=== PATIENT | male | born 1960 | race Caucasian/White ===

== ENCOUNTER 2022-08-23 17:53 | Emergency (ER) | payer MEDICAID ==
[~2022-08-23] VITALS: Ht 177.8 cm; Wt 99.8 kg
--- NOTE | 2022-08-23 18:48 | NUR ---
ESTABLISHED IV ACCESS 18G RIGHT AC. BLOOD DRAWN AND SENT TO LAB
--- NOTE | 2022-08-23 19:13 | NUR ---
Pt alert and oriented. In bed with head of bed elevated. at bedside. Pt able to answer questions. No signs of distress noted.
[2022-08-23 19:18] LABS: ALANINE AMINOTRANSFERASE 23 U/L (12-78); ALBUMIN 4.1 g/dL (3.4-5.0); ALKALINE PHOSPHATASE 56 U/L (46-116); ASPARTATE AMINOTRANSFERASE 20 U/L (15-37); BILIRUBIN,DIRECT 0.3 mg/dL (0.0-0.2); BILIRUBIN,TOTAL 0.9 mg/dL (0.2-1.0); CALCIUM, SERUM 10.1 mg/dL (8.5-10.1); CARBON DIOXIDE 27 mmol/L (21-32); CHLORIDE 95 mmol/L (98-107); CREATININE 2.2 mg/dL (0.6-1.3); GLUCOSE 169 mg/dL (74-106); POTASSIUM 2.9 mmol/L (3.5-5.1); SODIUM SERUM 134 mmol/L (136-145); TOTAL PROTEIN, SERUM 8.1 g/dL (6.4-8.2); UREA NITROGEN, BLOOD 22 mg/dL (7-18)
--- NOTE | 2022-08-23 19:25 | NUR ---
PT RETURNED TO ER BED [address]
--- NOTE | 2022-08-23 19:29 | NUR ---
COVID ANTIGEN SWAB COLLECTED AND SENT TO LAB
--- NOTE | 2022-08-23 20:32 | NUR ---
[facility] ([place]) [phone]
[2022-08-23 20:38] LABS: BASOPHILS % (AUTO) 0.1 % (0.0-2.0); HEMATOCRIT 49 % (39-51); HEMOGLOBIN 16.7 g/dL (13.5-17.5); LYMPHOCYTES # (AUTO) 0.9 K/uL (0.8-4.8); LYMPHOCYTES % (AUTO) 6.4 % (20.0-44.0); MEAN CORPUSCULAR HGB CONC 34 g/dl (31.0-36.0); MEAN CORPUSCULAR VOLUME 92 fL (80-96); MONOCYTES # (AUTO) 0.8 K/uL (0.1-1.30); MONOCYTES % (AUTO) 5.9 % (2.0-12.0); NEUTROPHILS # (AUTO) 12.6 K/uL (1.8-8.9); NEUTROPHILS % (AUTO) 87.6 % (43.0-81.0); PLATELET COUNT (AUTO) 187 K/uL (150-450); RED BLOOD CELL COUNT(AUTO) 5.32 MIL/uL (4.5-6.0); WHITE BLOOD COUNT (AUTO) 14.4 K/uL (4.3-11.0)
[2022-08-23] MEDS ORDERED: POTASSIUM CHLORIDE 20 MEQ TAB.PRT.SR PO ONE ×2 (21:00→21:47)
[2022-08-23] MEDS ORDERED: IV NS 0.9% 1,000 ML IV ONE (21:00)
[2022-08-23] MEDS ORDERED: POTASSIUM CL. PREMIX PERIPHER. 50 ML ONE ×2 (21:46→21:47)
[2022-08-23] MEDS: POTASSIUM CL. PREMIX PERIPHER. 50 ML IV SCH ×2 (21:59→22:59)
[2022-08-24] MEDS ORDERED: MAG HYDROX/AL HYDROX/SIMETH 30 ML UDC ONE (01:16)
[2022-08-24] MEDS ORDERED: MAG HYDROX/AL HYDROX/SIMETH 30 ML UDC PO ONE (01:30)
--- NOTE | 2022-08-24 03:59 | NUR ---
CALLED NOVEMBER, [employer] REGARDING TRANSFER. STILL AWAITING FOR ACCEPTING HOSPITAL.
--- NOTE | 2022-08-24 03:59 | NUR ---
PT SLEEPING; RR EVEN AND NON LABORED. SAFETY MEASURES IN PLACE.
--- NOTE | 2022-08-24 06:55 | NUR ---
CALLED [employer] TO FOLLOW UP ON TRANSFER. NO ANSWER.
--- NOTE | 2022-08-24 07:15 | NUR ---
PT ASlepy respiration spont and easy
--- NOTE | 2022-08-24 07:20 | NUR ---
PT RESTING COMFORTABLY IN BED, ALL NEEDS MET AT THIS TIME
--- NOTE | 2022-08-24 08:54 | NUR ---
PER ADMITTING, PT ACCEPTED AT [facility] STILL AWAITING BED AVAILABILITY.
--- NOTE | 2022-08-24 09:12 | NUR ---
PT AMBULATED TO RESTROOM ON HIS OWN
--- NOTE | 2022-08-24 11:36 | NUR ---
PT LEFT AGAINST MEDICAL ADVICE, DR JOHNSON EXPLAINED RISKS OF LEAVING. PT IV REMOVED, PRESSURE APPLIED.
[2022-08-24 11:42] VITALS: BP 143/85
== END 2022-08-24 11:42 | disposition left against medical advice (07) ==
LOC: ER 19:03
DX: R55 Syncope and collapse (principal); N17.9 Acute kidney failure, unspecified; E87.6 Hypokalemia; R73.9 Hyperglycemia, unspecified; I10 Essential (primary) hypertension; E78.5 Hyperlipidemia, unspecified; Z20.822 Contact with and (suspected) exposure to COVID-19
CPT/HCPCS: 99285; 96365; 70450; 71045; 96366 ×2; 87426; 93005; 85025; 80048; 80076; 36415; 84484; 87081; 82962; J7030; J3480 ×2; C9803

== ENCOUNTER 2024-07-21 22:05 | Emergency (ER) | payer MEDICARE, OTHER ==
[~2024-07-21] VITALS: Ht 170.2 cm; Wt 72.6 kg
[2024-07-21] MEDS ORDERED: hydrALAZINE HCL IV 20 MG VIAL ONE (23:36)
[2024-07-21] MEDS: hydrALAZINE HCL IV 20 MG VIAL IV ONE (23:41)
[2024-07-22 00:03] LABS: BASOPHILS % (AUTO) 0.5 % (0.0-2.0); EOSINOPHILS # (AUTO) 0.1 K/uL (0.0-0.7); EOSINOPHILS % (AUTO) 1.2 % (0.0-6.0); HEMATOCRIT 43 % (39-51); HEMOGLOBIN 15.4 g/dL (13.5-17.5); LYMPHOCYTES # (AUTO) 1.1 K/uL (0.8-4.8); LYMPHOCYTES % (AUTO) 15.5 % (20.0-44.0); MEAN CORPUSCULAR HEMOGLOBIN 32 PG (26.0-33.0); MEAN CORPUSCULAR HGB CONC 36 g/dl (31.0-36.0); MEAN CORPUSCULAR VOLUME 91 fL (80-96); MONOCYTES # (AUTO) 0.7 K/uL (0.1-1.30); MONOCYTES % (AUTO) 9.3 % (2.0-12.0); NEUTROPHILS # (AUTO) 5.2 K/uL (1.8-8.9); NEUTROPHILS % (AUTO) 73.5 % (43.0-81.0); PLATELET COUNT (AUTO) 136 K/uL (150-450); RED BLOOD CELL COUNT(AUTO) 4.77 MIL/uL (4.5-6.0); RED CELL DISTRIBUTION WIDTH 13.8 % (11.5-15.0); WHITE BLOOD COUNT (AUTO) 7.1 K/uL (4.3-11.0)
[2024-07-22 00:11] LABS: CALCIUM, SERUM 9.1 mg/dL (8.5-10.1); CREATININE 1.2 mg/dL (0.6-1.3); POTASSIUM 3.3 mmol/L (3.5-5.1)
[2024-07-22] MEDS ORDERED: POTASSIUM CHLORIDE 10 MEQ TABLET.SA ONE ×2 (00:46→00:48)
[2024-07-22] MEDS: POTASSIUM CHLORIDE 20 MEQ TAB.PRT.SR PO ONE (00:50)
[2024-07-22 01:21] VITALS: BP 196/118; TEMP 98.4; O2SAT 98
== END 2024-07-22 01:22 | disposition home or self-care (01) ==
LOC: ER 22:06
DX: I10 Essential (primary) hypertension (principal); E78.5 Hyperlipidemia, unspecified; E11.9 Type 2 diabetes mellitus without complications
CPT/HCPCS: 99284; 96374; 93005; 85025; 80048; 36415; J0360